=== PATIENT | female | born 2005 | race Caucasian/White ===

== ENCOUNTER 2023-01-03 10:22 | Emergency (ER) | payer BC, SELFPAY ==
[2023-01-03 10:36] VITALS: BP 143/92; PULSE 94; RESP 18; TEMP 37.6; O2SAT 99; BMI 23.0
--- NOTE | 2023-01-03 11:49 | ED.CHESTPAIN ---
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 He said initially thought it was anxiety she has had panic attacks in the past but this was different than her normal panic attack. She describes no fevers no chills no nausea vomiting, but felt that she could not catch her breath. She denies any leg swelling, any history of asthma wheezing coughing cold-like symptoms fevers chills or other issues. complaint: chest pain and chest heaviness Prior episodes: Yes Onset: during rest Pain location: substernal and left chest Pain radiation: back Severity: moderate Quality: tightness and heaviness Relieving factors: nothing Exacerbating factors: nothing Treatment prior to arrival: none Risk Factors Coronary artery disease risk factors: none Thoracic aortic dissection risk factors: none Related Data On Oral Contraceptives: No Home Medications Medication Instructions Recorded Confirmed No Known Home Medications 01/03/23 01/03/23 Allergies Allergy/AdvReac Type Severity Reaction Status Date / Time amoxicillin Allergy Verified 01/03/23 10:39 Review of Systems Status of ROS Reports: 10 or more systems reviewed and unremarkable except as noted in History and below PFSH PFS Social History Smoking Status: Never smoker Do you use any of these nicotine containing products: None How often do you have a drink containing alcohol: never How often do you have six or more drinks on one occasion: Never AUDIT-C Alcohol total score: 0 Non-prescribed substance use: denies use Exam Narrative Exam Narrative: Patient is speaking normally, no with slurring words, oriented x3. Head eyes ears nose and throat exam show equal pupils, no scleral icterus, extraocular muscles are normal, no facial droop, speech is normal, trachea normal and midline. Thyroid normal midline palpable not enlarged. Chest shows symmetrical rise bilaterally, normal auscultation with no wheezes, no increased work of breathing, no overt bruising or lesions seen, no tenderness is noted on auscultation. Heart sounds normal with no S3-S4 no murmurs clicks or gallops. Abdomen shows no obvious masses or hepatosplenomegaly, no organomegaly, bowel sounds are normal in all quadrants. No tenderness is noted also in all quadrants. Upper and lower extremities show normal power, normal range of motion, pulses are normal, sensations normal, fine motor movements are normal, pelvis is stable to rocking. Cervical spine shows normal range of motion, and palpably not tender. Thoracic spine shows normal range of motion, and palpably not tender, lumbar spine shows no tenderness to palpation percussion and is otherwise normal range of motion. Skin shows no rashes, petechiae or eccymosis. Const Vital Signs, click to edit/add: Vital Signs - 24 hr 01/03/23 10:36 Temperature 99.6 F Pulse Rate [Right Pulse Oximeter] 94 Respiratory Rate 18 Blood Pressure [Right Upper Arm] 143/92 H Pulse Oximetry 99 Oxygen Delivery Method Room Air Documenting provider has reviewed patient's vital signs: yes Course Course Hospital Course: I explained to the patient had a long discussion with her I think this is more anxiety base, probably not the cause of her chest pain per se but the overall cause of her situation as she is very anxious in the room, she has a history of seeing a psychiatrist and actually has an appointment tomorrow, she has previously on anxiety medication she stopped that 2 months ago and since then her issues have increased. There is a component of possible reflux here, encouraged her to use Prilosec, 20 mg a day for the next 3 weeks, encouraged her to follow up tomorrow with her psychiatrist, consideration of counseling also with the psychologist. She is not suicidal or homicidal, and at the present time I think this is the best treatment for her. She was comfortable this. Vital Signs Vital signs: Initial Vital Signs Temperature 99.6 F 01/03/23 10:36 Temperature Source Temporal Artery Scan 01/03/23 10:36 Pulse Rate 94 01/03/23 10:36 Respiratory Rate 18 01/03/23 10:36 Blood Pressure 143/92 H 01/03/23 10:36 Blood Pressure Mean 109 01/03/23 10:36 Blood Pressure Position Sitting 01/03/23 10:36 Pulse Oximetry 99 01/03/23 10:36 Oxygen Delivery Method 01/03/23 10:36 Vital Signs Temperature 99.6 F 01/03/23 10:36 Pulse Rate 94 01/03/23 10:36 Respiratory Rate 18 01/03/23 10:36 Blood Pressure 143/92 H 01/03/23 10:36 Pulse Oximetry 99 01/03/23 10:36 Oxygen Delivery Method 01/03/23 10:36 Temperature 99.6 F 01/03/23 10:36 Pulse Rate 94 01/03/23 10:36 Respiratory Rate 18 01/03/23 10:36 Blood Pressure 143/92 H 01/03/23 10:36 Pulse Oximetry 99 01/03/23 10:36 Oxygen Delivery Method 01/03/23 10:36 MDM - Chest Pain MDM Narrative Medical decision making narrative: During the evaluation of this patient I considered multiple differential diagnosis is. The life-threatening differential diagnosis include coronary disease/SD, pulmonary embolism, pneumothorax, pneumonia, and aortic dissection. Other differential diagnosis included but were not limited to pericarditis, myocarditis, chest wall pain, GERD, esophageal rupture, rib fracture contusion, pleurisy, as well as other etiologies. Medical Records Data Attestation: I reviewed the patient's medical records. ECG Data Attestation: I personally reviewed and interpreted this ECG as follows: ECG interpretation date: 01/03/23 Interpretation: EKG shows normal sinus rhythm, with mild sinus arrhythmia normal QRS QT and CO intervals assessment normal EKG Discharge Plan Discharge Clinical Impression: Acute anxiety, Chest pain Patient Disposition: Home, Self-Care Condition: Stable Instructions: Generalized Anxiety Disorder (ED), Cognitive Behavioral Therapy (ED), Anxiety (ED), Chest Wall Pain (ED) Additional Instructions: EKG looks good there is no evidence of any acute abnormality with the EKG. I do not think there is any significant heart issues going on with you Nika. I do think there is a strong anxiety component to this, but there may be something like reflux causing some issues which is increased within anxiety. I think a reasonable option would be to keep your appointment with her psychiatrist tomorrow, and then consideration of starting a medication called Prilosec. Take 20 mg once a day you can buy this [id number] and I would take this for a minimum of 3 weeks as it takes about a week to start working. Follow-up with her primary care doctor also Dr. Combs who is excellent for assessment. Prescriptions: No Action No Known Home Medications Follow Up/Referrals: Brian Combs MD [Staff Physician] - Stand Alone Forms: [facility] Info Instructions
== END 2023-01-03 11:34 | disposition home or self-care (01) ==
LOC: ED 11:34
PROVIDERS: Emergency Provider Family Medicine
DX: R07.9 Chest pain, unspecified (principal); F41.9 Anxiety disorder, unspecified
CPT/HCPCS: 93005; 99283; 99284